=== PATIENT | male | born 1985 | race Asian ===

== ENCOUNTER → 2017-11-04 | Outpatient (CLI) | payer OTHER ==
[2017-11-04 10:19] LABS: BASOPHIL % 0.5 % (0-2); PLATELET COUNT 196 x10^3mcL (130-400); RED CELL DISTRIBUTION WIDTH 12.1 % (11.5-14.5)
[2017-11-04 10:31] LABS: ALBUMIN 4.1 g/dL (3.4-5.0); ALKALINE PHOSPHATASE 36 U/L (46-116); ALT/SGPT 19 U/L (16-63); AST/SGOT 11 U/L (15-37); BILIRUBIN TOTAL 0.6 mg/dL (0.20-1.00); CALCIUM 8.8 mg/dL (8.5-10.1); CARBON DIOXIDE 31.8 mmol/L (21-32); CHLORIDE SERUM 104 mmol/L (98-107); CHOLESTEROL 148 mg/dL (<200); GFR1 > 60 mL/min; GLUCOSE SERUM 98 mg/dL (74-106); POTASSIUM SERUM 4.8 mmol/L (3.5-5.1); SODIUM SERUM 141 mmol/L (136-145); TOTAL PROTEIN, SERUM 7.6 g/dL (6.4-8.2); TRIGLYCERIDES 44 mg/dL (<150)
[2017-11-04 10:32] LABS: CHOLESTEROL/HDL RATIO 2.3; HDL CHOLESTEROL 64 mg/dL (40-60)
[2017-11-04 10:48] LABS: T3 TOTAL 0.79 ng/mL
[2017-11-04 11:59] LABS: FREE T4 0.96 ng/dL (0.76-1.46); FREE THYROXINE INDEX 2.6 ug/dL (1.4-4.5); T4(THYROXINE) 6.3 ug/dL (4.7-13.3)
== END | disposition home or self-care (01) ==
LOC: LB 09:30
PROVIDERS: Internal Medicine
DX: Z00.00 Encounter for general adult medical examination without abnormal findings (principal)
CPT/HCPCS: 84439